=== PATIENT | male | born 1955 | race Caucasian/White ===

== ENCOUNTER → 2020-09-22 09:36 | Outpatient (BNVA) | payer MEDICAID, OTHER, SELFPAY | PROVIDERS: PCP Physician Assistant; Visit Provider Surgery Vascular Surgery | DX: I73.9 Peripheral vascular disease, unspecified (principal); I83.11 Varicose veins of right lower extremity with inflammation | CPT/HCPCS: 99202 ==

== ENCOUNTER 2020-10-13 12:56 | Outpatient (REF) | payer OTHER, SELFPAY ==
--- NOTE | ~2020-10-13 | US_ITS ---
EXAMINATION: US VENOUS BILATERAL LOWER EXTREMITIES (REFLUX EXAM) CLINICAL INDICATION: Leg pain and varicose veins. COMPARISON: None TECHNIQUE: Color flow triplex imaging and compression Doppler was performed to evaluate both the deep and the superficial systems bilaterally. To evaluate the superficial system, the examination was performed in the upright position. Color-flow Doppler ultrasound and compression ultrasound were utilized. In addition, maneuvers were utilized to demonstrate reflux. FINDINGS: 1. DEEP VENOUS ULTRASOUND OF THE RIGHT LOWER EXTREMITY: Respiratory variation, normal compression and augmented flow are noted in the right common femoral vein as well as the right popliteal vein and there is no evidence of deep venous thrombosis at these locations. There is no evidence of reflux in the deep system in either the common femoral vein or the popliteal vein. There is no evidence of a Larios's cyst. 2. SUPERFICIAL ULTRASOUND WITH DOPPLER OF RIGHT LOWER EXTREMITY: The right great saphenous vein at the saphenofemoral junction measures 6 mm, at the proximal thigh 4 mm, at the mid thigh 3 mm, above the knee 2 mm, at the knee 1 mm, [id number] 2 mm, midcalf 2 mm and at the ankle measures 5 mm. Segmental reflux of 3.4 seconds is noted below the knee. Duplicated Right Great Saphenous Vein: None The right small saphenous vein measures 2 mm and shows no reflux. Accessory Vein of Giacomini: None Incompetent Perforators: None Varices Present: Yes, ranging in size from 0.5 to 0.8 cm, some with greater than 3 seconds of reflux. 3. DEEP VENOUS ULTRASOUND OF THE LEFT LOWER EXTREMITY: Respiratory variation, normal compression and augmented flow are noted in the left common femoral vein as well as the left popliteal vein and there is no evidence of deep venous thrombosis at these locations. 0.9 seconds of reflux is noted in the left common femoral vein. There is no evidence of a Larios's cyst. 4. SUPERFICIAL ULTRASOUND WITH DOPPLER OF LEFT LOWER EXTREMITY: Left great saphenous vein at the saphenofemoral junction measures 8 mm, at the proximal thigh 7 mm, at the mid thigh 4 mm, above the knee 3 mm, at the knee 3 mm, [id number] 2 mm, midcalf 2 mm and at the ankle measures 2 mm. Reflux is noted at the junction and proximal thigh with reflux times as high as 2.6 seconds. Reflux is noted below the knee with reflux times over 1 second. Duplicated Left Great Saphenous Vein: None The left small saphenous vein measures 2 mm and shows no reflux. Accessory Vein of Giacomini: None Incompetent Perforators: Yes. 2 mm in the proximal calf with 0.7 seconds of reflux. Varices Present: Yes. Ranging in size from 0.3 to 0.4 cm with greater than 1 second of reflux. US/US venous duplex LE BI IMPRESSION: 1. No evidence of thrombus in the common femoral veins or popliteal veins bilaterally. Deep venous reflux of 0.9 seconds is noted in the left common femoral vein. 2. 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
--- NOTE | ~2020-10-13 | US_ITS ---
EXAMINATION: COLOR-FLOW DUPLEX IMAGING OF THE BILATERAL LOWER EXTREMITY ARTERIAL SYSTEM. VELOCITY MEASUREMENTS THROUGHOUT THE FEMORAL ARTERIES WITH ANKLE-BRACHIAL PERIPHERAL ARTERIAL TESTING. Interventional Radiologist: Declan Lainez M.D., F.S.I.R., F.A.C.R. CLINICAL INFORMATION: This is a 65-year-old male with bilateral peripheral arterial disease. RIGHT FEMORAL RUNOFF VELOCITIES: The right common femoral artery measures 79 cm/s and triphasic. The right profunda femoral artery is 139 cm/s and is triphasic. Right proximal superficial femoral artery measures 82 cm/s and monophasic. Mid superficial femoral artery is 55 cm/s and monophasic. Distal right superficial femoral artery measures 79 cm/s and is monophasic. Right popliteal velocity measures 27 cm/s and is monophasic. The posterior tibial artery velocity measures 28 cm/s and was monophasic. The right ankle-brachial index is 0.56. LEFT FEMORAL RUNOFF VELOCITIES: The left common femoral artery measures 123 cm/s and triphasic. The left profunda femoral artery is 243 cm/s and is monophasic. There appears to be a hemodynamically significant stenosis present. Left proximal superficial femoral artery measures 312 cm/s and monophasic. There is a severe hemodynamically significant stenosis present. Mid superficial femoral artery is 42-83 cm/s and monophasic. There appears to be decreased flow post stenosis. Distal left superficial femoral artery measures 53 cm/s and is monophasic. Left popliteal velocity measures 148 cm/s and is monophasic. There appears to be a hemodynamically significant stenosis present. The posterior tibial artery is not detectable. Collaterals are seen in the region and this vessel may be occluded. The left ankle-brachial index is 0.48. US/US arterial duplex LE BI IMPRESSION: 1. There is severe hemodynamically significant stenosis in the proximal left superficial femoral artery. There is decreased flow down the left lower extremity beyond the stenosis. 2. There is diffuse severe disease in the right lower extremity with decreased velocities and an abnormal ankle-brachial index. This is also suspicious for diffuse disease. A focal area of high-grade stenosis could not be demonstrated.
== END 2020-10-13 12:57 | disposition home or self-care (01) ==
LOC: HO.US 12:56
PROVIDERS: PCP Physician Assistant; Visit Provider Surgery Vascular Surgery
DX: I83.11 Varicose veins of right lower extremity with inflammation (principal); I70.213 Atherosclerosis of native arteries of extremities with intermittent claudication, bilateral legs
CPT/HCPCS: 93925; 93970

== ENCOUNTER → 2020-10-27 15:55 | Outpatient (BNVA) | payer OTHER, SELFPAY | PROVIDERS: PCP Physician Assistant; Referring Provider Physician Assistant; Visit Provider Surgery Vascular Surgery | DX: I73.9 Peripheral vascular disease, unspecified (principal); I83.11 Varicose veins of right lower extremity with inflammation | CPT/HCPCS: 99212 ==

== ENCOUNTER 2020-11-16 07:36 | Day surgery (SDC) | payer OTHER, SELFPAY ==
[2020-11-16 08:37] VITALS: BMI 35.8
[2020-11-16 08:40] LABS: MANUAL DIFF FLAG NO
[2020-11-16 08:42] LABS: Basophils Percent Auto 0.6 % (0-2); Eosinophils Absolute Auto 0.1 X10*3/uL (0.0-0.4); Eosinophils Percent Auto 1.8 % (0-4); Hematocrit 39.5 % (42-52); Hemoglobin 14.1 g/dl (14.0-18.0); Imm Gran Abs Auto 0.01 X10*3/uL (0.00-0.03); Imm Gran Pct Auto 0.2 % (0.0-0.4); Lymphocytes Absolute Auto 1.8 X10*3/uL (1.2-4.9); Lymphocytes Percent Auto 35.7 % (20-40); Mean Corpuscular HGB Conc 35.7 g/dl (31.0-36.0); Mean Corpuscular Hemoglobin 32.9 pg (27.0-33.0); Mean Corpuscular Volume 92.3 fL (80-98); Monocytes Absolute Auto 0.4 X10*3/uL (0.1-1.2); Monocytes Percent Auto 8.2 % (2-11); Neutrophils Absolute Auto 2.7 X10*3/uL (2.0-8.3); Neutrophils Percent Auto 53.5 % (45-73); Platelet Count 122 X10*3/uL (160-400); Red Blood Count 4.28 X10*6/uL (4.60-5.80); Red Cell Distribution Width 13.6 % (11.0-16.0)
[2020-11-16 08:49] LABS: Prothrombin Time 11.3 SEC (9.9-13.0)
[2020-11-16 09:50] LABS: Anion Gap 14 (12-20); Blood Urea Nitrogen 19 mg/dL (9-16); Calcium 9.6 mg/dL (8.4-10.2); Carbon Dioxide 25 mmol/L (22-29); Chloride 104 mmol/L (96-108); Creatinine Clr Calc Pharmacy 89.7; Estimated Glomerular Filt Rate > 60; Glucose Random 120 mg/dL (60-115); Sodium 139 mmol/L (135-145)
--- NOTE | 2020-11-16 11:53 | P.OP_ITS ---
Operative Note Operative Note Date of Service: 11/16/20 Narrative: Angiogram report from [facility] Preoperative diagnosis: Atherosclerosis of left lower extremity with activity limiting claudication Postoperative diagnosis: Same Procedure: 1. Ultrasound-guided right common femoral access 2. Aortogram with left lower extremity runoff 3. Left SFA atherectomy and stent placement Surgeon:Dannie Castillo M.D. Sales Architect:None Anesthesia: Local with moderate conscious sedation for a total of 90 minutes, performed by la Specimens:none Drains:none Estimated blood loss: Less than 10 ml Indications: 65-year-old gentleman with a history of longstanding peripheral vascular disease has severe activity limiting claudication. He now presents for endovascular intervention. The patient has signed the informed consent after reviewing risks, complications, benefits, and alternatives previously discussed with the patient in my office. The patient was given the opportunity to ask any additional questions or voice any concerns. All questions were answered to the patient's satisfaction. Procedure in detail: Patient was brought to the angiography suite prior to which a time-out was called for patient identification and site verification. Bilateral groins were prepped and draped in the standard surgical fashion. Under ultrasound guidance rightcommon femoral was punctured with micro puncture needle and wire. Subsequently a precision 4 Haitian sheath was then placed. [employer]tale [place] wire was advanced to the level of the aorta. 4 Haitian Flush catheter was brought up and parked at the level of the renal arteries. Aortogram was then undertaken. Catheter was brought down to the level of the iliac bifurcation. Iliacs were subsequently imaged. Catheter was then brought in up and over to the left side SFA. Runoff study was then undertaken. At this time he was recognized to have severe SFA disease. 5000 units of systemic heparin was administered. After 5 minutes of circulation time up and over 6 Haitian sheath was then placed. We then were able to traverse the multiple lesions throughout the SFA and get down into the popliteal. Glidewire Advantage was advanced. We confirmed true lumen with catheter. Once this was accomplished we advanced a spider wire. We did a Hawk 1 atherectomy of the distal SFA. We had to do for passes remove the Hawk and do a 2nd time of for additional passes to debulk the lesion. Once this was accomplished we plasty this area with a 6 x 100 balloon. We subsequently placed a 6 x 120 stent. We once again placed a balloon to obtain good wall apposition of the stents with a 6 x 100. Then turned our attention to the proximal SFA which was a 6 by a 120 stent from just below the origin of the profundus femoral us on down. Once this was accomplished we and once again obtain good wall apposition with a 6 x 100 balloon. Completion angiogram was then performed. StarClose closure device was deployed. Patient tolerated the procedure well. Returned to recovery with stable vitals. Interpretation of films: 1. Ultrasound demonstrates appropriate femoral puncture. Image of which was saved. 2. Aortogram demonstrates aneurysmal aorta. Minimal disease. Appropriate take- off of the renals. 3. Iliac images demonstrate aneurysmal iliacs. Normal flow through the common femoral and profundus. 4. Left lower extremity demonstrated good flow through the common femoral and profunda femorals. SFA had multiple high-grade stenotic lesions throughout. Down to the popliteal P2 segment on down total occlusion of the popliteal. Flow through the anterior tibial and peroneal via collaterals. Conclusion: 1. Successful atherectomy and stent of left SFA. Patient will require 6 months of aspirin and Plavix. This note is constructed using voice recognition software. While every effort has been made to ensure accuracy, affirmative action specialist errors may have been included. Thank you for allowing me to participate in the care of your patient. Yours sincerely, Dannie Castillo MD, FACS, R.P.V.I.
[2020-11-16 12:05] VITALS: BP 138/86; PULSE 70; RESP 16; TEMP 36.6; O2SAT 96
[2020-11-16 12:20] VITALS: BP 153/79; PULSE 78; RESP 18; O2SAT 96
[2020-11-16 12:35] VITALS: BP 147/77; PULSE 70; RESP 20; O2SAT 95
[2020-11-16 12:50] VITALS: BP 139/82; PULSE 72; RESP 20; O2SAT 95
[2020-11-16 13:05] VITALS: BP 146/77; PULSE 75; RESP 20; O2SAT 95
[2020-11-16 13:30] VITALS: BP 135/86; PULSE 66; RESP 20; TEMP 37; O2SAT 95
== END 2020-11-16 13:51 | disposition home or self-care (01) ==
PROVIDERS: PCP Physician Assistant; Visit Provider Surgery Vascular Surgery
DX: I70.212 Atherosclerosis of native arteries of extremities with intermittent claudication, left leg (principal); I70.92 Chronic total occlusion of artery of the extremities; R25.2 Cramp and spasm; I10 Essential (primary) hypertension; I83.811 Varicose veins of right lower extremity with pain; R60.0 Localized edema; Z87.891 Personal history of nicotine dependence
CPT/HCPCS: 36415; 37227; 76937; 80048; 85025; 85610; 85730; 99152; 99153; C1714; C1725; C1760; C1769; C1884; C1887; J2250; J3010; Q9967

== ENCOUNTER → 2020-12-06 15:21 | Outpatient (BNVA) | payer OTHER, SELFPAY | PROVIDERS: PCP Physician Assistant; Visit Provider Surgery Vascular Surgery | DX: I73.9 Peripheral vascular disease, unspecified (principal) | CPT/HCPCS: 99212 ==

== ENCOUNTER 2021-02-27 14:34 | Outpatient (REF) | payer OTHER, SELFPAY ==
--- NOTE | ~2021-02-27 | US_ITS ---
EXAMINATION: COLOR-FLOW DUPLEX IMAGING OF THE BILATERAL LOWER EXTREMITY ARTERIAL SYSTEM. VELOCITY MEASUREMENTS THROUGHOUT THE FEMORAL ARTERIES WITH ANKLE-BRACHIAL PERIPHERAL ARTERIAL TESTING. Interventional Radiologist: Declan Lainez M.D., F.S.I.R., F.A.C.R. CLINICAL INFORMATION: This is a 65-year-old male with a history of hypertension, smoking, peripheral arterial disease, left femoral stent placement. COMPARISON: Comparison is made to the previous study dated 10/13/2020 RIGHT FEMORAL RUNOFF VELOCITIES: The right common femoral artery measures 125 cm/s. Monophasic. Previously, 79 cm/s and triphasic. The right profunda femoral artery is 101 cm/s. Monophasic. Previously, 139 cm/s and is triphasic. Right proximal superficial femoral artery measures 519 cm/s. Monophasic. Previously, 82 cm/s and monophasic. Mid superficial femoral artery is 56 cm/s. Monophasic. Previously, 55 cm/s and monophasic. Distal right superficial femoral artery measures 10 cm/s. Then occluded. Previously, 79 cm/s and is monophasic. Right popliteal velocity measures 29 cm/s. Monophasic. Previously, 27 cm/s and is monophasic. The posterior tibial artery velocity measures 28 cm/s and was monophasic. The right ankle-brachial index is 0.51. Previously, 0.56. LEFT FEMORAL RUNOFF VELOCITIES: The left common femoral artery measures 95 cm/s. Monophasic. Previously, 123 cm/s and triphasic. The left profunda femoral artery is not clearly defined. Collateral vessels are seen. Left proximal superficial femoral artery is stented. Previously it measures 312 cm/s and monophasic. There is a severe hemodynamically significant stenosis present. Mid superficial femoral artery is stented. Previously, 42-83 cm/s and monophasic. There appears to be decreased flow post stenosis. Distal left superficial femoral artery is stented. Previously it measures 53 cm/s and is monophasic. Left popliteal velocity measures 17 cm/s and monophasic. Previously, 148 cm/s and is monophasic. There appears to be a hemodynamically significant stenosis present. The posterior tibial artery is not detectable. Collaterals are seen in the region and this vessel may be occluded. Previously, not detected. The left ankle-brachial index is 0.52. Previously, 0.48. The left popliteal artery demonstrates ectatic areas. The possibility of dilatation secondary to an aneurysm should be considered. This measures 1.2 x 1.4 cm. There is a second area which measures 1.5 x 1.3 cm. LEFT FEMORAL STENT VELOCITIES: [place] artery proximal to the stent: 118 cm/s and monophasic. Proximal stent: 195 cm/s and monophasic. Mid stent: 114 cm/s and monophasic. Distal stent: 92 cm/s and monophasic. [place] artery distal to the stent: 147 cm/s and monophasic. US/US [place] complete IMPRESSION: 1. The left superficial femoral artery is now occluded across the previously demonstrated high-grade stenosis. There appears to be significant disease distal to the stent. The stent appears to be patent. There is a borderline area of elevated velocity at the proximal stent. There may be aneurysmal dilatation in the left popliteal artery. 2. There is diffuse severe disease in the right lower extremity with decreased velocities and an abnormal ankle-brachial index. There appears to be occlusion of the distal right superficial femoral artery which appears new.
--- NOTE | ~2021-02-27 | US_ITS ---
EXAMINATION: COLOR-FLOW DUPLEX IMAGING OF THE BILATERAL LOWER EXTREMITY ARTERIAL SYSTEM. VELOCITY MEASUREMENTS THROUGHOUT THE FEMORAL ARTERIES WITH ANKLE-BRACHIAL PERIPHERAL ARTERIAL TESTING. Interventional Radiologist: Declan Lainez M.D., F.S.I.R., F.A.C.R. CLINICAL INFORMATION: This is a 65-year-old male with a history of hypertension, smoking, peripheral arterial disease, left femoral stent placement. COMPARISON: Comparison is made to the previous study dated 10/13/2020 RIGHT FEMORAL RUNOFF VELOCITIES: The right common femoral artery measures 125 cm/s. Monophasic. Previously, 79 cm/s and triphasic. The right profunda femoral artery is 101 cm/s. Monophasic. Previously, 139 cm/s and is triphasic. Right proximal superficial femoral artery measures 519 cm/s. Monophasic. Previously, 82 cm/s and monophasic. Mid superficial femoral artery is 56 cm/s. Monophasic. Previously, 55 cm/s and monophasic. Distal right superficial femoral artery measures 10 cm/s. Then occluded. Previously, 79 cm/s and is monophasic. Right popliteal velocity measures 29 cm/s. Monophasic. Previously, 27 cm/s and is monophasic. The posterior tibial artery velocity measures 28 cm/s and was monophasic. The right ankle-brachial index is 0.51. Previously, 0.56. LEFT FEMORAL RUNOFF VELOCITIES: The left common femoral artery measures 95 cm/s. Monophasic. Previously, 123 cm/s and triphasic. The left profunda femoral artery is not clearly defined. Collateral vessels are seen. Left proximal superficial femoral artery is stented. Previously it measures 312 cm/s and monophasic. There is a severe hemodynamically significant stenosis present. Mid superficial femoral artery is stented. Previously, 42-83 cm/s and monophasic. There appears to be decreased flow post stenosis. Distal left superficial femoral artery is stented. Previously it measures 53 cm/s and is monophasic. Left popliteal velocity measures 17 cm/s and monophasic. Previously, 148 cm/s and is monophasic. There appears to be a hemodynamically significant stenosis present. The posterior tibial artery is not detectable. Collaterals are seen in the region and this vessel may be occluded. Previously, not detected. The left ankle-brachial index is 0.52. Previously, 0.48. The left popliteal artery demonstrates ectatic areas. The possibility of dilatation secondary to an aneurysm should be considered. This measures 1.2 x 1.4 cm. There is a second area which measures 1.5 x 1.3 cm. LEFT FEMORAL STENT VELOCITIES: [place] artery proximal to the stent: 118 cm/s and monophasic. Proximal stent: 195 cm/s and monophasic. Mid stent: 114 cm/s and monophasic. Distal stent: 92 cm/s and monophasic. [place] artery distal to the stent: 147 cm/s and monophasic. US/US arterial duplex LE BI IMPRESSION: 1. The left superficial femoral artery is now occluded across the previously demonstrated high-grade stenosis. There appears to be significant disease distal to the stent. The stent appears to be patent. There is a borderline area of elevated velocity at the proximal stent. There may be aneurysmal dilatation in the left popliteal artery. 2. There is diffuse severe disease in the right lower extremity with decreased velocities and an abnormal ankle-brachial index. There appears to be occlusion of the distal right superficial femoral artery which appears new.
== END 2021-02-27 14:35 | disposition home or self-care (01) ==
LOC: HO.US 14:34
PROVIDERS: Visit Provider Surgery Vascular Surgery
DX: I73.9 Peripheral vascular disease, unspecified (principal)
CPT/HCPCS: 93923; 93925

== ENCOUNTER → 2021-03-07 15:36 | Outpatient (BNVA) | payer OTHER, SELFPAY | PROVIDERS: PCP Physician Assistant; Visit Provider Surgery Vascular Surgery | DX: I73.9 Peripheral vascular disease, unspecified (principal) | CPT/HCPCS: 99212 ==

== ENCOUNTER → 2021-07-18 14:46 | Outpatient (BNVA) | payer OTHER, SELFPAY | PROVIDERS: PCP Physician Assistant; Visit Provider Surgery Vascular Surgery | DX: I73.9 Peripheral vascular disease, unspecified (principal) | CPT/HCPCS: 99212 ==

== ENCOUNTER 2021-08-30 06:30 | Day surgery (SDC) | payer OTHER, SELFPAY ==
[2021-08-30] VITALS (10 sets, daily range): BP systolic 105–148; BP diastolic 63–93; PULSE 61–87; RESP 16–18; TEMP 36.1–36.7; O2SAT 93–97; BMI 38.5
[2021-08-30] MEDS: 0.9 % Sodium Chloride 1,000 ML 100 ML IVCONT (06:57)
[2021-08-30 07:03] LABS: MANUAL DIFF FLAG NO
[2021-08-30 07:07] LABS: Basophils Percent Auto 0.5 % (0-2); Eosinophils Absolute Auto 0.1 X10*3/uL (0.0-0.4); Eosinophils Percent Auto 2.6 % (0-4); Hematocrit 38.6 % (42.0-52.0); Hemoglobin 13.8 g/dl (14.0-18.0); Lymphocytes Absolute Auto 1.5 X10*3/uL (1.2-4.9); Lymphocytes Percent Auto 39.6 % (20-40); Mean Corpuscular HGB Conc 35.8 g/dl (31.0-36.0); Mean Corpuscular Volume 89.6 fL (80.0-98.0); Mean Platelet Volume 12.4 fL (9.4-12.4); Monocytes Absolute Auto 0.4 X10*3/uL (0.1-1.2); Monocytes Percent Auto 9.9 % (2-11); Neutrophils Absolute Auto 1.8 x10*3/uL (2.0-8.3); Neutrophils Percent Auto 47.4 % (45-73); Platelet Count 136 X10*3/uL (160-400); Red Blood Count 4.31 X10*6/uL (4.60-5.80); Red Cell Distribution Width 13.9 % (11.0-16.0); White Blood Count 3.8 X10*3/uL (4.8-10.8)
[2021-08-30 07:24] LABS: Blood Urea Nitrogen 19 mg/dL (9-16); Creatinine Clr Calc Pharmacy 93.7; Estimated Glomerular Filt Rate > 60
[2021-08-30] MEDS: iohexoL 300 MG/ML 100 ML INFUS..BTL IV (09:26)
--- NOTE | 2021-08-30 09:36 | P.OP_ITS ---
Operative Note Operative Note Date of Service: 08/30/21 Narrative: Angiogram report from [facility] Preoperative diagnosis: Atherosclerosis of right lower extremity with activity limiting claudication Postoperative diagnosis: Same Procedure: 1. Ultrasound-guided left common femoral access 2. Aortogram with bilateral lower extremity runoff Surgeon:Dannie Casitllo M.D., FACS, RPVI Development And Housing Director:None Anesthesia: Local with moderate conscious sedation. Total intraservice moderate sedation time was 37 minutes. I monitored the patient's level of consciousness and physiologic status continuously throughout the procedure. Specimens:none Drains:none Estimated blood loss: Less than 10 ml Implant: None Indications: 66-year-old [place]ian gentleman with a history of peripheral v ascular disease and prior left lower extremity endovascular intervention now presents for his right lower extremity. This was reviewed with patient and patient's daughter. The patient has signed the informed consent after reviewing risks, complications, benefits, and alternatives previously discussed with the patient. The patient was given the opportunity to ask any additional questions or voice any concerns. All questions were answered to the patient's satisfaction. Procedure in detail: Patient was brought to the angiography suite prior to which a time-out was called for patient identification and site verification. Bilateral groins were prepped and draped in the standard surgical fashion. Under ultrasound guidance left common femoral was punctured with micro puncture needle and wire. Subsequently a precision 4 Afghan sheath was then placed. [employer] Labsson wire was advanced to the level of the aorta. 4 Afghan Flush catheter was brought up and parked at the level of the renal arteries. Aortogram was then undertaken. Catheter was brought down to the level of the iliac bifurcation. Iliacs were subsequently imaged. Catheter was then brought in up and over to the right side SFA. Runoff study was then undertaken. No intervention was indicated. Catheter and wire removed and through the sheath we then imaged the left lower extremity as well. Sheath was then removed. 10 minutes of direct pressure was held. Patient tolerated the procedure well. Interpretation of films: 1. Ultrasound demonstrates appropriate femoral puncture. Image of which was saved. 2. Aortogram demonstrates appropriate caliber aorta. Minimal disease. Appropriate take-off of the renals. 3. Iliac images demonstrate no significant disease 4. Right Leg Common femoral artery: No significant disease Profundus Femoris: No significant disease Superficial femoral artery: Occluded just beyond the origin Popliteal artery (p1,p2,p3): Small segment reconstitution of P2 segment but immediately Reoccludes Anterior tibial artery: Patent via collaterals Peroneal artery: Occluded Posterior tibial artery: Occluded Dorsalis pedis/plantar arch: Minimal flow 5. Left Leg Common femoral artery: No significant disease Profundus Femoris: No significant disease SFA: Significant in stent restenosis Popliteal artery (p1,p2,p3): Occludes beyond the P2 segment Anterior tibial artery: Patent via collaterals Peroneal artery: Patent via collaterals Posterior tibial artery: Occluded Dorsalis pedis/plantar arch: Minimal flow Conclusion: 1. Successful diagnostic angiogram. Right lower extremity would require surgery. Left lower extremity will require reintervention to keep the stents patent. 2. Anticoagulation status: Remain on aspirin and Plavix This note is constructed using voice recognition software. While every effort has been made to ensure accuracy, oral and maxillofacial surgeon errors may have been included. Thank you for allowing me to participate in the care of your patient. Yours sincerely, Dannie Castillo MD, FACS, R.P.V.I.
[2021-08-30] MEDS: oxyCODONE HCl Immed Release 5 MG TABLET PO (10:18)
[2021-08-30] MEDS: Acetaminophen 325 MG TABLET 650 MG PO (10:18)
== END 2021-08-30 13:17 | disposition home or self-care (01) ==
LOC: HO.SSS 10:13
PROVIDERS: PCP Physician Assistant; Visit Provider Surgery Vascular Surgery
DX: I70.211 Atherosclerosis of native arteries of extremities with intermittent claudication, right leg (principal); R26.2 Difficulty in walking, not elsewhere classified; Z87.891 Personal history of nicotine dependence
CPT/HCPCS: 36247; 36415; 75630; 76937; 82565; 84520; 85025; 99152; 99153; C1769; C1887; J2250; J3010; Q9967

== ENCOUNTER → 2021-09-19 14:59 | Outpatient (BNVA) | payer OTHER, SELFPAY | PROVIDERS: PCP Physician Assistant; Visit Provider Surgery Vascular Surgery | DX: I73.9 Peripheral vascular disease, unspecified (principal); Z95.820 Peripheral vascular angioplasty status with implants and grafts | CPT/HCPCS: 99212 ==

== ENCOUNTER 2021-10-11 06:01 | Day surgery (SDC) | payer OTHER, SELFPAY ==
[2021-10-11] VITALS (7 sets, daily range): BP systolic 126–160; BP diastolic 60–87; PULSE 64–78; RESP 17–19; TEMP 36.9–37.1; O2SAT 95–97; BMI 39.5
[2021-10-11 06:39] LABS: MANUAL DIFF FLAG NO
[2021-10-11 06:40] LABS: Basophils Percent Auto 0.6 % (0-2); Eosinophils Absolute Auto 0.1 X10*3/uL (0.0-0.4); Eosinophils Percent Auto 1.7 % (0-4); Hemoglobin 15.1 g/dl (14.0-18.0); Imm Gran Abs Auto 0.01 X10*3/uL (0.00-0.03); Imm Gran Pct Auto 0.2 % (0.0-0.4); Lymphocytes Absolute Auto 1.8 X10*3/uL (1.2-4.9); Lymphocytes Percent Auto 38.4 % (20-40); Mean Corpuscular Hemoglobin 32.1 pg (27.0-33.0); Mean Corpuscular Volume 89.2 fL (80.0-98.0); Mean Platelet Volume 12.3 fL (9.4-12.4); Monocytes Absolute Auto 0.4 X10*3/uL (0.1-1.2); Monocytes Percent Auto 8.6 % (2-11); Neutrophils Absolute Auto 2.3 x10*3/uL (2.0-8.3); Neutrophils Percent Auto 50.5 % (45-73); Platelet Count 154 X10*3/uL (160-400); Red Blood Count 4.71 X10*6/uL (4.60-5.80); Red Cell Distribution Width 13.9 % (11.0-16.0); White Blood Count 4.6 X10*3/uL (4.8-10.8)
[2021-10-11] MEDS: 0.9 % Sodium Chloride 1,000 ML 100 ML IVCONT (06:54)
[2021-10-11 07:11] LABS: Blood Urea Nitrogen 23 mg/dL (9-16); Creatinine Clr Calc Pharmacy 84.6; Estimated Glomerular Filt Rate > 60
--- NOTE | 2021-10-11 09:37 | W.PM.OPN ---
Operative Note Operative Note Date of Service: 10/11/21 Narrative: Angiogram report from [facility] Preoperative diagnosis: Atherosclerosis of left lower extremity with activity limiting claudication Postoperative diagnosis: Same Procedure: 1. Ultrasound-guided right common femoral access 2. Aortogram with left lower extremity runoff 3. Angioplasty and stent of left SFA Surgeon:Dannie Castillo M.D., FACS, RPVI Locker Room Supervisor:None Anesthesia: Local with moderate conscious sedation. Total intraservice moderate sedation time was 62 minutes. I monitored the patient's level of consciousness and physiologic status continuously throughout the procedure. Specimens:none Drains:none Estimated blood loss: Less than 10 ml Implant: 6 x 60 Medtronic Ev 3 stent; 6 x 206 x 250 Medtronic Impact DCB balloon Indications: 66-year-old American gentleman with left lower extremity activity limiting claudication presents for endovascular reintervention. computer hourly sign language interpreter was present during consent The patient has signed the informed consent after reviewing risks, complications, benefits, and alternatives previously discussed with the patient. The patient was given the opportunity to ask any additional questions or voice any concerns. All questions were answered to the patient's satisfaction. Procedure in detail: Patient was brought to the angiography suite prior to which a time-out was called for patient identification and site verification. Bilateral groins were prepped and draped in the standard surgical fashion. Under ultrasound guidance right common femoral was punctured with micro puncture needle and wire. Subsequently a precision 5 Chadian sheath was then placed. Bentson wire was advanced to the level of the aorta. 5 Chadian Flush catheter was brought up and parked at the level of the renal arteries. Aortogram was then undertaken. Catheter was brought down to the level of the iliac bifurcation. Iliacs were subsequently imaged. Catheter was then brought in up and over to the left side SFA. Runoff study was then undertaken. Recognize that the prior to stents had developed InStent restenoses and there was a space between the 2 stents that had to be traversed. We 1st placed an up and over 6 Chadian sheath. Prior to that we had administered 8000 units of systemic heparin. After 5 minutes of circulation time we then 1st started more distally. We initially plasty this with a regular 6 x 120 balloon requiring multiple insufflations. We 1st insufflated the distal section with a 6 x 200 drug coated balloon. This was brought into position in under 3 minutes and insufflated for a total of 3 minutes in duration. Once this was accomplished we turned our attention to the gap between the 2 stents. We placed a 6 x 60 stent. We then post dilated the more proximal and plasty this with a 6 x 250 drug coated balloon. Once again this was brought into position in under 3 minutes and insufflated for a total of 3 minutes in duration. Once this was all accomplished catheter wire sheath was brought back to the ipsilateral side StarClose closure device was deployed patient tolerated the procedure well returned to recovery with stable vitals. Interpretation of films: 1. Ultrasound demonstrates appropriate femoral puncture. Image of which was saved. 2. Aortogram demonstrates appropriate caliber aorta. Minimal disease. Appropriate take-off of the renals. 3. Iliac images demonstrate tortuous but no significant disease 4. Left Leg Common femoral artery: No significant disease Profundus Femoris: No significant disease Superficial femoral artery: InStent restenoses Popliteal artery (p1,p2,p3): Patent P1 and P2, P3 occludes Anterior tibial artery: Patent via collaterals and this supplies the foot Peroneal artery: Occluded Posterior tibial artery: Occluded Dorsalis pedis/plantar arch: Incomplete Conclusion: 1. Successful plasty and stent of left SFA 2. Anticoagulation status: Will need continuation of aspirin and Plavix for minimum of 6 months This note is constructed using voice recognition software. While every effort has been made to ensure accuracy, senior production manager errors may have been included. Thank you for allowing me to participate in the care of your patient. Yours sincerely, Dannie Castillo MD, FACS, R.P.V.I.
[2021-10-11] MEDS: Acetaminophen 325 MG TABLET 650 MG PO (10:00)
[2021-10-11] MEDS: iohexoL 300 MG/ML 100 ML INFUS..BTL IV (14:08)
== END 2021-10-11 11:56 | disposition home or self-care (01) ==
PROVIDERS: PCP Physician Assistant; Visit Provider Surgery Vascular Surgery
DX: T82.856A Stenosis of peripheral vascular stent, initial encounter (principal); M79.662 Pain in left lower leg; I70.212 Atherosclerosis of native arteries of extremities with intermittent claudication, left leg; Y82.8 Other medical devices associated with adverse incidents; I10 Essential (primary) hypertension; Y92.9 Unspecified place or not applicable; Z79.02 Long term (current) use of antithrombotics/antiplatelets; Z87.891 Personal history of nicotine dependence
CPT/HCPCS: 36415; 37226; 76937; 82565; 84520; 85025; 99152; 99153; C1725; C1760; C1769; C1876; C1887; J2250; J3010; Q9967

== ENCOUNTER → 2021-11-30 09:03 | Outpatient (BNVA) | payer OTHER, SELFPAY | PROVIDERS: PCP Physician Assistant; Visit Provider Surgery Vascular Surgery | DX: I73.9 Peripheral vascular disease, unspecified (principal); Z95.820 Peripheral vascular angioplasty status with implants and grafts | CPT/HCPCS: 99212 ==

== ENCOUNTER 2022-03-27 14:35 | Outpatient (REF) | payer OTHER, SELFPAY ==
--- NOTE | ~2022-03-27 | US_ITS ---
EXAMINATION: NONINVASIVE ASSESSMENT OF THE ARTERIES OF BOTH LOWER EXTREMITIES CLINICAL INFORMATION: Peripheral vascular disease, unspecified. COMPARISON: Arterial duplex 02/27/2021. TECHNIQUE: Segmental ankle pulse volume recording, pressure measurement at the ankle and ankle brachial indices were obtained of the lower extremity arterial system bilaterally. In addition, bilateral lower extremity duplex ultrasound was performed with velocity measurements and waveform analysis in the common femoral arteries, profunda femoris arteries, proximal mid and distal superficial femoral arteries, popliteal arteries and tibial vessels. This study was performed at rest only. FINDINGS: a) AT REST: 1. The ankle-brachial indices are: Right 0.42 and left 0.52. >0.97-1.25 = normal - no significant arterial disease. 0.75-0.96 = mild peripheral arterial disease. 0.5-0.74 = moderate peripheral arterial disease. <0.50 = severe peripheral arterial disease. 2. Segmental pressure at ankle: Decreased. 3. PVR waveform at ankle: Blunted. 4. Duplex exam. Velocities in cm/sec and phasicity as well as the presence of plaque are reported below. RIGHT LEG: Common Femoral: 128 biphasic Profunda Femoris: 135 monophasic Proximal SFA: Occluded Mid SFA: Occluded Distal SFA: Occluded Popliteal: Occluded with possible aneurysm measuring 1.5 cm Posterior tibial: Occluded Peroneal: Not seen LEFT LEG: Common Femoral: 101 triphasic Profunda Femoris: 140 triphasic Proximal SFA: Stented and patent Mid SFA: Stented and patent Distal SFA: Stented and patent Popliteal: 59, monophasic proximally but thrombosed at the level of a 1.4 cm aneurysm Posterior tibial: Occluded Peroneal: Not seen US/US arterial duplex LE BI IMPRESSION: 1. Evidence of severe bilateral peripheral vascular disease with ABIs of 0.42 on the right and 0.52 on the left. 2. On the right, there is thrombosis of the SFA with no runoff visualized. 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 3. On the left, there is an SFA stent present which is patent but the popliteal artery appears occluded at the level of a 1.4 cm aneurysm
== END 2022-03-27 14:36 | disposition home or self-care (01) ==
LOC: HO.US 14:35
PROVIDERS: Visit Provider Surgery Vascular Surgery
DX: I73.9 Peripheral vascular disease, unspecified (principal)
CPT/HCPCS: 93923; 93925

== ENCOUNTER 2022-03-27 17:43 | Emergency (ER) | payer OTHER, SELFPAY ==
--- NOTE | ~2022-03-27 | XR_ITS ---
EXAMINATION: XR CHEST CLINICAL INFORMATION: Congestive heart failure COMPARISON: None TECHNIQUE: Frontal view of the chest was obtained. FINDINGS: Slightly rotated positioning. Prominence of the cardiac and mediastinal silhouette. Monitoring leads overlie the chest. Borderline central pulmonary vasculature.. Mild nonspecific interstitial prominence in the lower lungs. No focal consolidation. No effusion. No pneumothorax. XR/XR chest 1V IMPRESSION: No focal consolidation. Possible mild interstitial edema. No effusion.
--- NOTE | 2022-03-27 19:01 | ECG_ITS ---
Test Reason : CHF Blood Pressure : / mmHG Vent. Rate : 088 BPM Atrial Rate : 088 BPM P-R Int : 168 ms QRS Dur : 112 ms QT Int : 406 ms P-R-T Axes : 055 -19 035 degrees QTc Int : 491 ms Normal sinus rhythm Incomplete right bundle branch block Nonspecific T wave abnormality Prolonged QT Abnormal ECG No previous ECGs available Referred By: Harpal Faustin Electronically Signed By:HENRRY MENDOZA
--- NOTE | 2022-03-27 19:16 | ED_ITS ---
HPI - General Adult General Chief complaint: Extremity Injury, Lower Stated complaint: ?R/O DVT Time Seen by Provider: 03/27/22 18:57 Source: patient and family Mode of arrival: ambulatory Limitations: no limitations History of Present Illness HPI narrative: Patient is 66 years old with history of hypertriglyceridemia severe peripheral vascular disease status post angioplasty and stent of left SFA in 10/13 on Plavix and aspirin came from ultrasound department after routine follow-up arterial duplex which showed evidence of severe bilateral peripheral vessel disease on the right side the thrombus of SFA with no run of a blood artery occluded at the level of 1.4 cm aneurysm. Patient does have claudication in the right leg which happens usually after walking 30 meters as usual no change in pain lately no dis coloration of the leg patient does have chronic left leg swelling does have sleep apnea noticing the CPAP machine also has high triglyceride Related Data Home Medications Medication Instructions Recorded Confirmed atorvastatin 80 mg tablet 80 mg PO DAILY 12/06/20 chlorthalidone 25 mg tablet 25 mg PO DAILY 12/06/20 lisinopril 20 mg tablet 20 mg PO DAILY 12/06/20 aspirin 81 mg tablet,delayed 81 mg PO DAILY 03/07/21 release (Adult Aspirin Regimen) famotidine 20 mg tablet 20 mg PO DAILY 09/19/21 Previous Rx's Medication Instructions Recorded clopidogrel 75 mg tablet (Plavix) 75 mg PO DAILY #30 tabs 11/16/20 clopidogrel 75 mg tablet (Plavix) 75 mg PO DAILY #90 tabs 11/30/21 apixaban 5 mg (74 tabs) tablets in 5 mg PO BID #74 ea 03/27/22 a dose pack (EliParrut DVT-PE Treat 30D Start) Allergies Allergy/AdvReac Type Severity Reaction Status Date / Time No Known Allergies Allergy Verified 11/30/21 09:07 Review of Systems Review of Systems: Yes all other systems are reviewed and are negative [facility] Past Medical History Medical History HTN (hypertension) S/P angiogram of extremity (11/16/20) Family History Family History Mother Varicose veins of both lower extremities Father Varicose veins of both lower extremities Social History Social History (Reviewed 11/30/21 @ 09:08 by GERMAINE Harris Alcohol intake: current Alcohol intake frequency: a few times a month Alcohol type: hard liquor Patient Tobacco Use Status: Former Tobacco user Quit Date: 2015 Years Smoked: 30 +/- Advance Directives: No Advance Directives Information Provided: No Physical Exam ED Vital Signs: Vital Signs - 24 hr 03/27/22 19:26 Temperature 98.0 F Respiratory Rate 88 H Blood Pressure 155/100 H Pulse Oximetry 94 Oxygen Delivery Method Room Air BMI result Body Mass Index 40.8 Appearance: Alert. Oriented X3. No acute distress. Eyes: PERRLA, No Nystagmus ENT: Pharynx normal. Oral Mucosa moist Neck: Normal inspection. Neck supple. CVS: Normal heart rate and rhythm. Pulses normal. Respiratory: No respiratory distress. Equal air entry bilateral, no wheezing/rales/rhonchi Abdomen: Soft and nontender. Bowel sounds are present, no mass palpable, no CVA tenderness Skin: Skin warm and dry. Normal skin color. Normal skin turgor. Extremities: No lower extremity edema. No calf tenderness unable to palpate right dorsalis pedis lower extremity warm no gangrenous changes extremities warm Neuro: Oriented X 3. No motor deficit. No sensory deficit.No cerebellar signs , cranial nerves II-XII intact Medications Administered Discontinued Medications Generic Name Dose Route Start Last Admin Trade Name Juanq PRN Reason Stop Dose Admin Apixaban 10 mg 03/27/22 19:38 03/27/22 20:13 Apixaban 5 Mg Tablet PO 03/27/22 19:39 10 mg ONCE ONE Administration Medical Decision Making Medical Decision Making [facility] Narrative: Patient with peripheral arterial disease with clot in SFA case discussed with Dr. Castillo seems like earache chronic ongoing problem advised to start patient on Eliquis at this time patient does not have any acute ischemic changes claudication pain is same as before discharge patient home on Eliquis will stop Plavix Lab Data [facility] Lab Attestation statement: I reviewed the patient's lab results. Result Diagrams: 03/27/22 19:40 03/27/22 19:40 Labs: Lab Results 03/27/22 03/27/22 03/27/22 Range/Units 19:40 19:40 19:40 WBC 4.7 L (4.8-10.8) X10*3/uL RBC 4.54 L (4.60-5.80) X10*6/uL Hgb 14.2 (14.0-18.0) g/dl Hct 40.8 L (42.0-52.0) % MCV 89.9 (80.0-98.0) fL MCH 31.3 (27.0-33.0) pg MCHC 34.8 (31.0-36.0) g/dl RDW 14.6 (11.0-16.0) % Plt Count 180 (160-400) X10*3/uL MPV 12.7 H (9.4-12.4) fL Immature Gran % (Auto) 0.4 (0.0-0.4) % Neut % (Auto) 47.4 (45-73) % Lymph % (Auto) 40.0 (20-40) % [place] % (Auto) 9.9 (2-11) % Eos % (Auto) 1.7 (0-4) % Baso % (Auto) 0.6 (0-2) % Lymph # (Auto) 1.9 (1.2-4.9) X10*3/uL [place] # (Auto) 0.5 (0.1-1.2) X10*3/uL Eos # (Auto) 0.1 (0.0-0.4) X10*3/uL Baso # (Auto) 0.0 (0.0-0.2) X10*3/uL Abs Immat Gran (auto) 0.02 (0.00-0.03) X10*3/uL Absolute Neuts (auto) 2.2 (2.0-8.3) x10*3/uL Absolute Nucleated RBC 0.000 (0.0-0.012) X10*3/uL Nucleated RBC % (auto) 0.0 (0.0-0.2) /100WBC Smear Tech's Comments VERIFIED PT (10.0-13.1) SEC INR (0.9-1.1) APTT 31.2 (26.0-36.4) SEC Sodium 139 (135-145) mmol/L Potassium 3.6 (3.3-5.1) mmol/L Chloride 104 (96-108) mmol/L Carbon Dioxide 23 (22-29) mmol/L Anion Gap 16 (12-20) BUN 20 H (9-16) mg/dL Creatinine 1.06 (0.5-1.4) mg/dL Estim Creat Clear Calc 89.4 Estimated GFR > 60 Random Glucose 149 H (60-115) mg/dL Calcium 9.3 (8.4-10.2) mg/dL Total Bilirubin 0.4 (0.0-1.0) mg/dL AST 38 H (5-37) U/L ALT 61 H (0-40) U/L Alkaline Phosphatase 87 (39-117) U/L Troponin I High Sens (<3.5-35.0) ng/L B-Natriuretic Peptide (<100) pg/mL Total Protein 7.0 (6.5-8.0) g/dL Albumin 3.9 (3.5-5.0) g/dL 03/27/22 03/27/22 03/27/22 Range/Units 19:40 19:40 19:40 WBC (4.8-10.8) X10*3/uL RBC (4.60-5.80) X10*6/uL Hgb (14.0-18.0) g/dl Hct (42.0-52.0) % MCV (80.0-98.0) fL MCH (27.0-33.0) pg MCHC (31.0-36.0) g/dl RDW (11.0-16.0) % Plt Count (160-400) X10*3/uL MPV (9.4-12.4) fL Immature Gran % (Auto) (0.0-0.4) % Neut % (Auto) (45-73) % Lymph % (Auto) (20-40) % [place] % (Auto) (2-11) % Eos % (Auto) (0-4) % Baso % (Auto) (0-2) % Lymph # (Auto) (1.2-4.9) X10*3/uL [place] # (Auto) (0.1-1.2) X10*3/uL Eos # (Auto) (0.0-0.4) X10*3/uL Baso # (Auto) (0.0-0.2) X10*3/uL Abs Immat Gran (auto) (0.00-0.03) X10*3/uL Absolute Neuts (auto) (2.0-8.3) x10*3/uL Absolute Nucleated RBC (0.0-0.012) X10*3/uL Nucleated RBC % (auto) (0.0-0.2) /100WBC Smear Tech's Comments PT 11.3 (10.0-13.1) SEC INR 1.0 (0.9-1.1) APTT (26.0-36.4) SEC Sodium (135-145) mmol/L Potassium (3.3-5.1) mmol/L Chloride (96-108) mmol/L Carbon Dioxide (22-29) mmol/L Anion Gap (12-20) BUN (9-16) mg/dL Creatinine (0.5-1.4) mg/dL Estim Creat Clear Calc Estimated GFR Random Glucose (60-115) mg/dL Calcium (8.4-10.2) mg/dL Total Bilirubin (0.0-1.0) mg/dL AST (5-37) U/L ALT (0-40) U/L Alkaline Phosphatase (39-117) U/L Troponin I High Sens 6.2 (<3.5-35.0) ng/L B-Natriuretic Peptide < 10 (<100) pg/mL Total Protein (6.5-8.0) g/dL Albumin (3.5-5.0) g/dL Discharge Plan Discharge Clinical Impression: PAD (peripheral artery disease) Patient Disposition: Home, Self-Care Instructions: Peripheral Artery Disease (ED) Additional Instructions: hold Clopidogrel and start taking Eliquis 10 mg twice daily for 7 days then 5 mg twice daily, continue aspirin Call Dr. Castillo next week for further intervention Report to the ER if discoloration of the right leg or increased pain Prescriptions: New Eliquis DVT-PE Treat 30D Start 5 mg (74 tabs) tablets,dose pack 5 mg PO BID Qty: 74 0RF Rx Instructions: 10 mg twice daily for 7 days then 5 mg twice daily No Action clopidogrel [Plavix] 75 mg tablet 75 mg PO DAILY Qty: 30 5RF aspirin [Adult Aspirin Regimen] 81 mg tablet,delayed release (DR/EC) 81 mg PO DAILY atorvastatin 80 mg tablet 80 mg PO DAILY chlorthalidone 25 mg tablet 25 mg PO DAILY lisinopril 20 mg tablet 20 mg PO DAILY famotidine 20 mg tablet 20 mg PO DAILY clopidogrel [Plavix] 75 mg tablet 75 mg PO DAILY Qty: 90 1RF Interventions: ED Discharge Assessment Last Done: 03/27/22 21:00 Discharge Date/Time: 03/27/22 21:03
[2022-03-27 19:26] VITALS: BP 155/100; RESP 88; TEMP 36.7; O2SAT 94
[2022-03-27 19:29] VITALS: BMI 40.8
[2022-03-27 19:51] LABS: Prothrombin Time 11.3 SEC (10.0-13.1)
[2022-03-27 20:06] LABS: B Type Natriuretic Peptide < 10 pg/mL (<100)
[2022-03-27 20:07] LABS: Troponin-I High Sensitivity 6.2 ng/L (<3.5-35.0)
[2022-03-27] MEDS: Apixaban 5 MG TABLET 10 MG PO (20:13)
[2022-03-27 20:17] LABS: Partial Thromboplastin Time 31.2 SEC (26.0-36.4)
[2022-03-27 20:36] LABS: Basophils Percent Auto 0.6 % (0-2); Eosinophils Absolute Auto 0.1 X10*3/uL (0.0-0.4); Eosinophils Percent Auto 1.7 % (0-4); Hematocrit 40.8 % (42.0-52.0); Hemoglobin 14.2 g/dl (14.0-18.0); Imm Gran Abs Auto 0.02 X10*3/uL (0.00-0.03); Imm Gran Pct Auto 0.4 % (0.0-0.4); Lymphocytes Absolute Auto 1.9 X10*3/uL (1.2-4.9); MANUAL DIFF FLAG SCAN; Mean Corpuscular HGB Conc 34.8 g/dl (31.0-36.0); Mean Corpuscular Hemoglobin 31.3 pg (27.0-33.0); Mean Corpuscular Volume 89.9 fL (80.0-98.0); Mean Platelet Volume 12.7 fL (9.4-12.4); Monocytes Absolute Auto 0.5 X10*3/uL (0.1-1.2); Monocytes Percent Auto 9.9 % (2-11); Neutrophils Absolute Auto 2.2 x10*3/uL (2.0-8.3); Neutrophils Percent Auto 47.4 % (45-73); Platelet Count 180 X10*3/uL (160-400); Red Blood Count 4.54 X10*6/uL (4.60-5.80); Red Cell Distribution Width 14.6 % (11.0-16.0); SCAN SMEAR FLAG 1; White Blood Count 4.7 X10*3/uL (4.8-10.8)
[2022-03-27 20:37] LABS: PLT ABN DIST 1
[2022-03-27 20:43] LABS: SLIDE REVIEW VERIFIED
[2022-03-27 20:48] LABS: Alanine Aminotransferase 61 U/L (0-40); Albumin Level 3.9 g/dL (3.5-5.0); Alkaline Phosphatase 87 U/L (39-117); Anion Gap 16 (12-20); Aspartate Amino Transferase 38 U/L (5-37); Bilirubin Total 0.4 mg/dL (0.0-1.0); Blood Urea Nitrogen 20 mg/dL (9-16); Calcium 9.3 mg/dL (8.4-10.2); Carbon Dioxide 23 mmol/L (22-29); Chloride 104 mmol/L (96-108); Creatinine Clr Calc Pharmacy 89.4; Estimated Glomerular Filt Rate > 60; Glucose Random 149 mg/dL (60-115); Potassium 3.6 mmol/L (3.3-5.1); Sodium 139 mmol/L (135-145)
== END 2022-03-27 21:03 | disposition home or self-care (01) ==
PROVIDERS: Emergency Provider Internal Medicine
DX: I73.9 Peripheral vascular disease, unspecified (principal); I10 Essential (primary) hypertension; Z79.02 Long term (current) use of antithrombotics/antiplatelets; Z79.82 Long term (current) use of aspirin; Z79.899 Other long term (current) drug therapy; Z79.01 Long term (current) use of anticoagulants
CPT/HCPCS: 36415; 71045; 80053; 83880; 84484; 85025; 85610; 85730; 93005; 99283

== ENCOUNTER → 2022-03-29 09:28 | Outpatient (BNVA) | payer OTHER, SELFPAY | PROVIDERS: PCP Physician Assistant; Visit Provider Surgery Vascular Surgery | DX: I73.9 Peripheral vascular disease, unspecified (principal); I10 Essential (primary) hypertension | CPT/HCPCS: 99212 ==

== ENCOUNTER 2022-06-25 14:33 | Outpatient (REF) | payer MEDICAID, OTHER, SELFPAY ==
--- NOTE | ~2022-06-25 | US_ITS ---
EXAMINATION: ANKLE-BRACHIAL INDICES SINGLE LEVEL PULSE VOLUME RECORDING ARTERIAL DUPLEX BILATERAL LEGS CLINICAL INFORMATION: Peripheral vascular disease. Left stent placed. Hypertension. Former smoker. COMPARISON: 03/27/2022 TECHNIQUE: Ankle-brachial indices and PVR at the ankle were obtained. Duplex Doppler of the bilateral lower extremity arterial systems was performed. FINDINGS: RIGHT: Ankle-brachial index: 0.31, previously 0.42 PVR: Abnormal Common femoral: PSV 105 cm/s. Triphasic waveform. Deep femoral: PSV 108 cm/s. Triphasic waveform. Proximal superficial femoral: Occluded. Mid superficial femoral: Occluded. Distal superficial femoral: Occluded. Popliteal: Occluded. Posterior tibial: Occluded. There is distal reconstitution with monophasic flow. Peroneal: Not seen. LEFT: Ankle-brachial index: 0.70, previously 0.52 PVR: Abnormal Common femoral: PSV 126 cm/s. Triphasic waveform. Deep femoral: PSV 76 cm/s. Triphasic waveform. Proximal superficial femoral pre stent: PSV 107 cm/s. Triphasic waveform. Proximal stent: PSV 125 cm/s. Triphasic waveform. Mid stent: PSV 114 cm/s. Triphasic waveform. Distal stent: PSV 70 cm/s. Triphasic waveform. Distal superficial femoral post stent: PSV 72 cm/s. Triphasic waveform. Popliteal: PSV 39 cm/s. Monophasic waveform. Posterior tibial: PSV 17 cm/s. Monophasic waveform. Peroneal: Not seen. US/US [place]AW[place] complete IMPRESSION: Right lower extremity: Severe peripheral arterial disease with [place] 0.31 (previously 0.42), abnormal PVR, occluded SFA, popliteal, and proximal posterior tibial artery with some distal reconstitution in the distal posterior tibial artery exhibiting monophasic flow. Left: Moderate peripheral arterial disease with [place] 0.70 (previously 0.52), abnormal PVR, patent SFA stent, reconstitution of previously thrombosed severely diseased popliteal artery now with visible monophasic popliteal/posterior tibial flow.
--- NOTE | ~2022-06-25 | US_ITS ---
EXAMINATION: ANKLE-BRACHIAL INDICES SINGLE LEVEL PULSE VOLUME RECORDING ARTERIAL DUPLEX BILATERAL LEGS CLINICAL INFORMATION: Peripheral vascular disease. Left stent placed. Hypertension. Former smoker. COMPARISON: 03/27/2022 TECHNIQUE: Ankle-brachial indices and PVR at the ankle were obtained. Duplex Doppler of the bilateral lower extremity arterial systems was performed. FINDINGS: RIGHT: Ankle-brachial index: 0.31, previously 0.42 PVR: Abnormal Common femoral: PSV 105 cm/s. Triphasic waveform. Deep femoral: PSV 108 cm/s. Triphasic waveform. Proximal superficial femoral: Occluded. Mid superficial femoral: Occluded. Distal superficial femoral: Occluded. Popliteal: Occluded. Posterior tibial: Occluded. There is distal reconstitution with monophasic flow. Peroneal: Not seen. LEFT: Ankle-brachial index: 0.70, previously 0.52 PVR: Abnormal Common femoral: PSV 126 cm/s. Triphasic waveform. Deep femoral: PSV 76 cm/s. Triphasic waveform. Proximal superficial femoral pre stent: PSV 107 cm/s. Triphasic waveform. Proximal stent: PSV 125 cm/s. Triphasic waveform. Mid stent: PSV 114 cm/s. Triphasic waveform. Distal stent: PSV 70 cm/s. Triphasic waveform. Distal superficial femoral post stent: PSV 72 cm/s. Triphasic waveform. Popliteal: PSV 39 cm/s. Monophasic waveform. Posterior tibial: PSV 17 cm/s. Monophasic waveform. Peroneal: Not seen. US/US arterial duplex LE BI IMPRESSION: Right lower extremity: Severe peripheral arterial disease with [place] 0.31 (previously 0.42), abnormal PVR, occluded SFA, popliteal, and proximal posterior tibial artery with some distal reconstitution in the distal posterior tibial artery exhibiting monophasic flow. Left: Moderate peripheral arterial disease with [place] 0.70 (previously 0.52), abnormal PVR, patent SFA stent, reconstitution of previously thrombosed severely diseased popliteal artery now with visible monophasic popliteal/posterior tibial flow.
== END 2022-06-25 14:34 | disposition home or self-care (01) ==
LOC: HO.US 14:33
PROVIDERS: PCP Physician Assistant; Visit Provider Surgery Vascular Surgery
DX: I70.213 Atherosclerosis of native arteries of extremities with intermittent claudication, bilateral legs (principal)
CPT/HCPCS: 93923; 93925

== ENCOUNTER → 2022-07-03 15:13 | Outpatient (BNVA) | payer MEDICAID, OTHER, SELFPAY | PROVIDERS: PCP Physician Assistant; Visit Provider Surgery Vascular Surgery | DX: I73.9 Peripheral vascular disease, unspecified (principal); Z95.820 Peripheral vascular angioplasty status with implants and grafts; Z79.82 Long term (current) use of aspirin; Z79.899 Other long term (current) drug therapy | CPT/HCPCS: 99212 ==